=== PATIENT | male | born 1995 | race Caucasian/White ===

== ENCOUNTER 2022-05-29 15:45 | Outpatient (RCR) | payer BC | END 2022-05-31 10:38 | disposition home or self-care (01) | LOC: PT.GENESIS 15:45 | DX: S43.432D Superior glenoid labrum lesion of left shoulder, subsequent encounter (principal); X58.XXXD Exposure to other specified factors, subsequent encounter ==

== ENCOUNTER 2023-05-16 09:15 | Outpatient (RCR) | payer BC | END 2023-05-18 | disposition home or self-care (01) | LOC: PT.GENESIS | DX: M24.571 Contracture, right ankle (principal); M20.21 Hallux rigidus, right foot; M65.871 Other synovitis and tenosynovitis, right ankle and foot ==